=== PATIENT | female | born 1995 | race African-American/Black ===

== ENCOUNTER 2016-11-16 19:48 | Emergency (ER) | payer OTHER ==
[2016-11-16 20:00] VITALS: BP 126/80; PULSE 92; TEMP 98.9; BMI 21.6
[2016-11-16] MEDS ORDERED: ONDANSETRON 4 MG/2 ML VIAL IVPUSH ONE (20:05)
[2016-11-16] MEDS ORDERED: FAMOTIDINE 20 MG/50 ML IVPB 50 ML IVPB ONE ×2 (20:05→20:12)
[2016-11-16] MEDS ORDERED: SODIUM CHLORIDE 1,000 ML IV STA ×2 (20:05→21:29)
--- NOTE | 2016-11-16 20:08 | PDOC ---
History of Present Illness - General History Source: Patient Exam Limitations: No Limitations - History of Present Illness Initial Comments: 11/16/16 20:08 The patient is a 21 year old female, with a significant past medical history of IBS and asthma, who presents to the emergency department with abdominal pain, nausea, vomiting for the past 2 days and dizziness for the past week. She reports that her dizziness is intermittent in nature. She describes her abdominal pain as sharp cramping sensations, without radiation or modifying factors. The patient denies chest pain, shortness of breath and headache. Denies fever, chills, diarrhea and constipation. Allergies: Penicillin Past surgical history: None reported Social history: No alcohol, tobacco or drug use reported <Hero Tsai - Last Filed: 11/16/16 20:08> <Fransisco Castillo - Last Filed: 11/16/16 22:57> - General Chief Complaint: Pain, Acute Stated Complaint: NAUSEA, DIZZY,VOMITING RLQPAIN Time Seen by Provider: 11/16/16 19:53 Past History <Hero Tsai - Last Filed: 11/16/16 20:08> - Past Medical History Anemia: Yes Asthma: Yes GI Disorders: Yes (IBS, REFLUX) - Immunization History Td Vaccination: No Immunization Up to Date: No - Psycho/Social/Smoking Cessation Hx Anxiety: No Suicidal Ideation: No Smoking Status: No Smoking History: Never smoked Have you smoked in the past 12 months: No Number of Cigarettes Smoked Daily: 0 Information on smoking cessation initiated: No Hx Alcohol Use: No Drug/Substance Use Hx: No Substance Use Type: None <Fransisco Castillo - Last Filed: 11/16/16 22:57> - Past Medical History Allergies/Adverse Reactions: Allergies Allergy/AdvReac Type Severity Reaction Status Date / Time Penicillins Allergy Verified 11/16/16 19:52 Home Medications: Ambulatory Orders Famotidine [Pepcid] 20 mg PO DAILY #7 tablet 11/16/16 Polyethylene Glycol 3350 [Miralax (For Daily Use) -] 17 gm PO PRN 11/16/16 Review of Systems - Review of Systems Able to Perform ROS?: Yes ABD/GI: Yes: Nausea, Vomiting, Abdominal cramping All Other Systems: Reviewed and Negative <Hero Tsai - Last Filed: 11/16/16 20:08> *Physical Exam - Vital Signs Last Vital Signs Temp Pulse Resp BP Pulse Ox 98.9 F 92 H 18 126/80 100 11/16/16 19:54 11/16/16 19:54 11/16/16 19:54 11/16/16 19:54 11/16/16 19:54 <Hero Tsai - Last Filed: 11/16/16 20:08> - Vital Signs Last Vital Signs Temp Pulse Resp BP Pulse Ox 98.9 F 92 H 18 126/80 100 11/16/16 19:54 11/16/16 19:54 11/16/16 19:54 11/16/16 19:54 11/16/16 19:54 - Physical Exam General Appearance: Yes: Nourished, Appropriately Dressed. No: Apparent Distress HEENT: positive: Normal ENT Inspection Neck: positive: Supple. negative: Tender Respiratory/Chest: positive: Lungs Clear, Normal Breath Sounds. negative: Respiratory Distress Cardiovascular: positive: Regular Rhythm, Regular Rate Gastrointestinal/Abdominal: positive: Normal Bowel Sounds, Tender (EPIGASTRIC AND BOTH UPPER QUADRANTS MILD TENDERNESS. NO G/R OR GROSSMAN'S) Musculoskeletal: positive: Normal Inspection. negative: CVA Tenderness Neurologic: positive: Fully Oriented, Alert, Normal Mood/Affect, Normal Response , Motor Strength 5/5 <Fransisco Castillo - Last Filed: 11/16/16 22:57> ED Treatment Course - LABORATORY CBC & Chemistry Diagram: 11/16/16 21:55 11/16/16 21:55 <Fransisco Castillo - Last Filed: 11/16/16 22:57> Progress Note - Progress Note Progress Note: EPIGASTRIC PAIN LIKELY GASTRITIS (DYSPEPSIA) IVF/PEPCID/ZOFRAN REASSESS CHANA PO. STILL NAUSEA ON AND OFF WILL D/C HOME <Fransisco Castillo - Last Filed: 11/16/16 22:57> *DC/Admit/Observation/Transfer - Attestations Scribe Attestion: 11/16/16 20:09 Documentation prepared by Hero Tsai, acting as medical staff assistant for Fransisco Castillo MD <Hero Tsai - Last Filed: 11/16/16 20:08> <Fransisco Castillo - Last Filed: 11/16/16 22:57> Diagnosis at time of Disposition: Dyspepsia - Discharge Dispostion Disposition: HOME Condition at time of disposition: Improved - Prescriptions Prescriptions: Famotidine [Pepcid] 20 mg PO DAILY #7 tablet - Patient Instructions Additional Instructions: TAKE MEDICATIONS PRESCRIBED PLENTY OF FLUIDS (WATER/GATORADE) BLAND DIET, ADVANCE TOLERATED EAT FREQUENT, SMALL MEALS THROUGHOUT THE DAY MAALOX, 30 ml 1/2 HOUR AFTER MEALS AND AT BED TIME FIND A PRIMARY CARE DOCTOR AND FOLLOW UP THIS WEEK RETURN IF FEVER, VOMITING, SEVERE PAIN
[2016-11-16] MEDS ORDERED: ONDANSETRON 4 MG/2 ML VIAL ONE (20:12)
[2016-11-16 20:17] LABS: PH,URINE 6.5 (4.5-8); URINE APPEARANCE Clear; URINE BILIRUBIN 1+ (NEGATIVE); URINE GLUCOSE (UA) Negative (NEGATIVE); URINE KETONE Trace (NEGATIVE); URINE LEUK ESTERASE Negative (NEGATIVE); URINE NITRITE Negative (NEGATIVE); URINE UROBILINOGEN 2.0 E.U/dl (0.2-1.0)
[2016-11-16 20:26] LABS: URINE BLOOD 2+ (NEGATIVE); URINE COLOR YELLOW; URINE PROTEIN 2+ (NEGATIVE)
[2016-11-16] MEDS ORDERED: MAG HYDROX/AL HYDROX/SIMETH 30 ML UNIT-DOSE CUP PO ONE (20:37)
[2016-11-16] MEDS ORDERED: MAG HYDROX/AL HYDROX/SIMETH 30 ML UNIT-DOSE CUP ONE (20:41)
[2016-11-16 20:58] LABS: URINE WBC 0-3 (3-5)
[2016-11-16 20:59] LABS: URINE BACTERIA 1+ /hpf (NEGATIVE)
[2016-11-16] MEDS ORDERED: METOCLOPRAMIDE HCL INJECTION 10 MG/2 ML VIAL IVPB ONE (21:29)
[2016-11-16 22:16] LABS: MCH 28.4 pg (25.7-33.7); MCHC 34.3 g/dl (32.0-36.0); MEAN CELL VOLUME 82.8 fl (80-96); MEAN PLT VOLUME 11.1 fl (7.5-11.1); PLATELET COUNT 141 K/MM3 (134-434); RDW 14.4 % (11.6-15.6); WHITE BLOOD COUNT 6.1 K/mm3 (4.0-10.0)
[2016-11-16 22:24] LABS: ALBUMIN 3.1 g/dl (3.5-5.0); ALK PHOS 54 U/L (32-92); ANION GAP 6 (8-16); BILIRUBIN,TOTAL 0.9 mg/dl (0.2-1.0); CALCIUM 8.1 mg/dl (8.4-10.2); CO2 23 mmol/L (22-28); CREATININE 0.8 mg/dl (0.6-1.3); GLUCOSE,RANDOM 86 mg/dl (74-106); SGOT/AST 21 U/L (10-42); SGPT/ALT 20 U/L (10-40)
== END 2016-11-16 23:05 | disposition home or self-care (01) ==
LOC: FER 19:48
PROC: 3E033GC Introduction of Other Therapeutic Substance into Peripheral Vein, Percutaneous Approach (ICD-10-PCS; principal; 2016-11-16)
PROC: 3E0337Z Introduction of Electrolytic and Water Balance Substance into Peripheral Vein, Percutaneous Approach (ICD-10-PCS; 2016-11-16)
DX: R10.13 Epigastric pain (principal); J45.909 Unspecified asthma, uncomplicated; K58.9 Irritable bowel syndrome, unspecified; D64.9 Anemia, unspecified; K21.9 Gastro-esophageal reflux disease without esophagitis
CPT/HCPCS: 36415; 80053; 81003; 81015; 84703; 85027; 99282-25